=== PATIENT | male | born 1995 | race Caucasian/White ===

== ENCOUNTER 2019-02-13 03:14 | Emergency (ER) | payer OTHER, BC ==
[~2019-02-13] VITALS: Ht 180.3 cm; Wt 68.2 kg
[2019-02-13 03:26] VITALS: TEMP 98.4
[2019-02-13] MEDS ORDERED: PRILOSEC10 MG PO (03:29)
[2019-02-13] MEDS ORDERED: CELEXA10 MG PO (03:29)
[2019-02-13] MEDS ORDERED: ZOFRAN 4MG T4 MG/TAB PO (05:26)
[2019-02-13 05:54] LABS: HEMATOCRIT 50.8 % (42.0-52.0); HEMOGLOBIN 17.5 g/dl (13.5-18.0); MEAN CELL VOLUME 95 fl (80.0-100.0); MEAN CORPUSCULAR HEMOGLOBIN 33 pg (27.0-31.0); MEAN CORPUSCULAR HGB CONC 34 g/dl (33.0-37.0); MEAN PLATELET VOLUME 13.5 fl (7.4-10.4); PLATELET COUNT 185 K/mm3 (130-400); RED BLOOD COUNT 5.33 M/mm3 (4.20-5.60); REDCELL DISTRIBUTION WIDTH-CV 12.9 % (11.5-14.5)
[2019-02-13 06:03] LABS: ALBUMIN 5.4 gm/dL (3.5-5.0); BILIRUBIN,TOTAL 0.7 mg/dL (0.0-1.0); CALCIUM 10.1 mg/dL (8.4-10.2); CREATININE, serum 1.11 (0.66-1.25)
[2019-02-13 06:50] LABS: BAND 2 % (0-10); EOSINOPHIL 1 % (0-4); LYMPHOCYTE 19 % (20.0-51.0); NEUTROPHILS 74 % (42.0-75.2); PLATELET ESTIMATE NORMAL (NORMAL)
[2019-02-13 07:38] LABS: CALCIUM 9.5 mg/dL (8.4-10.2); CREATININE, serum 0.88 (0.66-1.25); POTASSIUM 4.9 mmol/L (3.4-5.0)
[2019-02-13 08:55] VITALS: BP 113/56; PULSE 74
== END 2019-02-13 08:55 | disposition home or self-care (01) ==
LOC: COL.ER 03:14
PROVIDERS: Emergency Medicine
DX: E86.9 Volume depletion, unspecified (principal); T73.0XXA Starvation, initial encounter; E88.89 Other specified metabolic disorders; F41.9 Anxiety disorder, unspecified; K21.9 Gastro-esophageal reflux disease without esophagitis
CPT/HCPCS: J1200; J2405; J2550; J3480; J7030

== ENCOUNTER 2019-09-28 20:59 | Emergency (ER) | payer OTHER ==
[~2019-09-28] VITALS: Ht 180.3 cm; Wt 65.9 kg
[~2019-09-28 20:59] MED LIST: CELEXA10 MG PO; PRILOSEC10 MG PO; ZOFRAN 4MG T4 MG/TAB PO
[2019-09-28 21:04] VITALS: BP 119/78; PULSE 77; TEMP 98.7
[2019-09-28 21:55] LABS: BASO % 0.5 % (0.0-2.0); EOS # 0.2 (0.0-0.7); EOS % 2.4 % (0-4.0); GRAN # 3.9 (1.4-6.5); GRAN % 62.9 % (42.2-75.2); HEMATOCRIT 43.6 % (42.0-52.0); HEMOGLOBIN 15.2 g/dl (13.5-18.0); LYMPH # 1.4 (1.2-3.4); MEAN CELL VOLUME 92 fl (80.0-100.0); MEAN CORPUSCULAR HEMOGLOBIN 32 pg (27.0-31.0); MEAN CORPUSCULAR HGB CONC 35 g/dl (33.0-37.0); MEAN PLATELET VOLUME 11.9 fl (7.4-10.4); MONO # 0.7 (0.1-0.6); PLATELET COUNT 147 K/mm3 (130-400); RED BLOOD COUNT 4.72 M/mm3 (4.20-5.60); REDCELL DISTRIBUTION WIDTH-CV 12.1 % (11.5-14.5)
[2019-09-28 22:11] LABS: ALBUMIN 4.6 gm/dL (3.5-5.0); BILIRUBIN,TOTAL 0.5 mg/dL (0.0-1.0); CALCIUM 9.4 mg/dL (8.4-10.2); CREATININE, serum 0.89 (0.66-1.25); POTASSIUM 4.6 mmol/L (3.4-5.0); TOTAL PROTEIN 7.6 gm/dL (6.4-8.2)
[2019-09-28 22:18] LABS: ERYTHROCYTE SEDIMENTATION RATE 4 mm/hr (0-15)
[2019-09-28] MEDS ORDERED: ZITHROMAX Z PA250 MG PO ×3 (22:50→22:54)
== END 2019-09-28 23:00 | disposition home or self-care (01) ==
LOC: COL.ER 20:59
PROVIDERS: Physician Assistant
DX: M94.0 Chondrocostal junction syndrome [Tietze] (principal); J06.9 Acute upper respiratory infection, unspecified; F17.290 Nicotine dependence, other tobacco product, uncomplicated

== ENCOUNTER 2020-08-23 00:45 | Emergency (ER) | payer OTHER ==
[~2020-08-23] VITALS: Ht 27.9 cm; Wt 68.2 kg
[~2020-08-23 00:45] MED LIST changes: +ZITHROMAX Z PA250 MG PO
[2020-08-23 00:48] VITALS: TEMP 97.4
[2020-08-23 01:12] LABS: BASO # 0.1 (0.0-0.2); BASO % 0.8 % (0.0-2.0); EOS # 0.2 (0.0-0.7); EOS % 2.9 % (0-4.0); GRAN # 3.7 (1.4-6.5); GRAN % 51.1 % (42.2-75.2); HEMATOCRIT 44.3 % (42.0-52.0); HEMOGLOBIN 16.3 g/dl (13.5-18.0); LYMPH # 2.7 (1.2-3.4); LYMPH % 38.1 % (20.0-51.0); MEAN CELL VOLUME 88 fl (80.0-100.0); MEAN CORPUSCULAR HEMOGLOBIN 32 pg (27.0-31.0); MEAN CORPUSCULAR HGB CONC 37 g/dl (33.0-37.0); MEAN PLATELET VOLUME 11.5 fl (7.4-10.4); MONO # 0.5 (0.1-0.6); MONO % 6.8 % (1.7-9.3); PLATELET COUNT 191 K/mm3 (130-400); RED BLOOD COUNT 5.06 M/mm3 (4.20-5.60); REDCELL DISTRIBUTION WIDTH-CV 11.7 % (11.5-14.5)
[2020-08-23] MEDS ORDERED: K-DUR 10 MEQ T10 MEQ PO (01:19)
[2020-08-23 01:38] LABS: ALANINE AMINOTRANSFERASE 17 U/L (4-49); ALBUMIN 4.5 gm/dL (3.5-5.0); ALKALINE PHOSPHATASE 48 U/L (50-136); ANION GAP 12 mmol/L (7-16); AST,SGOT 23 U/L (15-37); BILIRUBIN,TOTAL 0.8 mg/dL (0.0-1.0); BLOOD UREA NITROGEN 18 mg/dL (9-20); CALCIUM 9.3 mg/dL (8.4-10.2); CARBON DIOXIDE 22 mmol/L (22-30); CHLORIDE 104 mmol/L (98-107); CREATININE, serum 1.15 (0.66-1.25); GLUCOSE 114 mg/dL (74-106); SODIUM 138 mmol/L (137-145); TOTAL PROTEIN 7.3 gm/dL (6.4-8.2)
[2020-08-23 01:49] LABS: TROPONIN-I < 0.012 ng/mL (0.000-0.035)
[2020-08-23] MEDS ORDERED: VOLTAREN 75 DR75 MG PO (03:51)
[2020-08-23 03:57] VITALS: BP 132/70; PULSE 68
== END 2020-08-23 03:57 | disposition home or self-care (01) ==
LOC: COL.ER 00:45
PROVIDERS: Emergency Medicine
DX: R07.89 Other chest pain (principal)